=== PATIENT | female | born 1965 | race Caucasian/White ===

== ENCOUNTER 2023-10-17 09:54 | Outpatient (CLI) | payer OTHER, SELFPAY | END 2023-10-17 09:55 | disposition home or self-care (01) | LOC: KYNREF 09:55 | PROVIDERS: PCP Nurse Practitioner Family; Visit Provider Nurse Practitioner Family | DX: R50.9 Fever, unspecified (principal) | CPT/HCPCS: 85025 ==

== ENCOUNTER 2023-11-25 11:35 | Outpatient (CLI) | payer OTHER, SELFPAY | END 2023-11-25 11:36 | disposition home or self-care (01) | PROVIDERS: PCP Nurse Practitioner Family; Visit Provider Nurse Practitioner Family | DX: R07.89 Other chest pain (principal) | CPT/HCPCS: 80061; 84484; 85025 ==